=== PATIENT | male | born 1990 ===

== ENCOUNTER 2017-09-13 19:19 | Emergency (ER) | payer MEDICAID ==
[2017-09-13 19:32] VITALS: BP 117/69; PULSE 81; RESP 20; TEMP 98.2; O2SAT 99
--- NOTE | 2017-09-13 20:00 | C.PDOC ---
History Of Present Illness 27 year old male presents to the emergency department seeking cocaine and methadone detox. Patient reports that he smokes crack cocaine, last smoked today , and takes 120mg of methadone daily. Time Seen by Provider: 09/13/17 19:48 Chief Complaint (Nursing): Substance Abuse History Per: Patient History/Exam Limitations: no limitations Onset/Duration Of Symptoms: Hrs Current Symptoms Are (Timing): Still Present Suicide/Self Injury Attempted (Context): None Modifying Factor(s): Crack, Other (methadone) Past Medical History Reviewed: Historical Data, Nursing Documentation, Vital Signs Vital Signs: Last Vital Signs Temp 98.2 F 09/13/17 19:22 Pulse 81 09/13/17 19:22 Resp 20 09/13/17 19:22 BP 117/69 09/13/17 19:22 Pulse Ox 99 09/13/17 20:00 - Medical History PMH: No Chronic Diseases Surgical History: No Surg Hx Family History: States: No Known Family Hx - Social History Hx Alcohol Use: No Hx Substance Use: Yes Review Of Systems Except As Marked, All Systems Reviewed And Found Negative. Neurological: Positive for: Altered Mental Status (substance abuse) Physical Exam - Physical Exam Appears: Non-toxic, No Acute Distress Skin: Warm, Dry Head: Atraumatic, Normacephalic Eye(s): bilateral: Normal Inspection Nose: Normal Oral Mucosa: Moist Throat: Normal, No Erythema, No Exudate Neck: Normal, Supple Chest: Symmetrical, No Tenderness Cardiovascular: Rhythm Regular, No Murmur Respiratory: Normal Breath Sounds, No Rales, No Rhonchi, No Wheezing Gastrointestinal/Abdominal: Normal Exam, Soft, No Tenderness, No Guarding, No Rebound Neurological/Psych: Oriented x3, Normal Speech, Normal Cognition ED Course And Treatment O2 Sat by Pulse Oximetry: 99 (RA) Pulse Ox Interpretation: Normal Medical Decision Making Medical Decision Making: persistent crack cocaine and methadone use. Refuses detox for LOWER methadone dose Deferred by Crisis no active issues nor complaints now already scheduled for endoscopies @ a [facility] system. Plan: EKG Alcohol Serum CMP Drug Screen CMP Urinalysis Disposition Doctor Will See Patient In The: Office Counseled Patient/Family Regarding: Studies Performed, Diagnosis - Disposition Referrals: [facility] [Outside] [place] [facility] [Outside] [facility] [Outside] [facility] [Outside] Disposition: HOME/ ROUTINE Disposition Time: 20:00 Condition: GOOD Instructions: Drug Abuse and Drug Addiction (DC) Forms: [facility] (Guinean) Print Language: ICELANDIC - Clinical Impression Clinical Impression: Drug abuse - Scribe Statement The provider has reviewed the documentation as recorded by the Scribe (Bruno Chaidez) Provider Attestation: All medical record entries made by the Scribe were at my direction and personally dictated by me. I have reviewed the chart and agree that the record accurately reflects my personal performance of the history, physical exam, medical decision making, and the department course for this patient. I have also personally directed, reviewed, and agree with the discharge instructions and disposition.
--- NOTE | 2017-09-16 15:09 | CARD ---
APPROVED REPORT Date of service: 09/13/2017 EKG Measurement Heart [id number]-7 [id number] <Conclusion> Normal sinus rhythm Normal ECG
== END 2017-09-13 20:13 | disposition home or self-care (01) ==
LOC: C.ER 19:19
DX: F19.10 Other psychoactive substance abuse, uncomplicated (principal)